=== PATIENT | male | born 1950 | race Caucasian/White ===

== ENCOUNTER 2021-03-26 11:27 | Emergency (ER) | payer MEDICARE ==
[~2021-03-26 11:27] MED LIST: AMLODIPINE BESYL5 MG PO; ASPIRIN CHEWABL81 MG PO; COZAAR100 MG PO; FLOMAX0.4 MG PO; HYDRALAZINE HCL50 MG PO; OMNICEF 300 MG300 MG PO; TRANDATE 100 M100 MG PO
[2021-03-26 13:41] LABS: HEMOGLOBIN 12.7 gm/dl (14.0-17.5); RED BLOOD COUNT 3.9 M/UL (4.20-5.50); WHITE BLOOD COUNT 4.2 K/UL (4.5-11.0)
== END 2021-03-26 14:10 | disposition left against medical advice (07) ==
LOC: ER1 11:27
PROVIDERS: Physician Assistant Medical
DX: U07.1 COVID-19 (principal); I12.9 Hypertensive chronic kidney disease with stage 1 through stage 4 chronic kidney disease, or unspecified chronic kidney disease; N18.9 Chronic kidney disease, unspecified
CPT/HCPCS: 71045; 80053; 82550; 82553; 83874; 84484; 85025; 99283